=== PATIENT | male | born 1980 ===

== ENCOUNTER → 2018-03-26 | Outpatient (REF) ==
--- NOTE | 2018-03-26 16:47 | EKG ---
FACILITY: [facility] PATIENT NAME: LIDYA GAMBINO : [id number] MR: [id number]: [id number] EXAM DATE: ORDERING PHYSICIAN: ELIZABETH FUENTES TECHNOLOGIST: HILARY Hernandez Reason : SOB, FAMILY HX Blood Pressure : / mmHG Vent. Rate : 085 BPM Atrial Rate : 085 BPM P-R Int : 148 ms QRS Dur : 082 ms QT Int : 352 ms P-R-T Axes : 068 085 054 degrees QTc Int : 418 ms Normal sinus rhythm Normal ECG No previous ECGs available Confirmed by MARCE MANSFIELD ([id number]) on 03/26/2018 8:13:04 PM Referred By: ELIZABETH FUENTES Confirmed By:MARCE MANSFIELD
== END ==
LOC: RESP 16:32
PROVIDERS: ATTEND Family Medicine
DX: R06.02 Shortness of breath (principal); Z82.49 Family history of ischemic heart disease and other diseases of the circulatory system
CPT/HCPCS: 93005